=== PATIENT | female | born 1945 | race Caucasian/White ===

== ENCOUNTER → 2024-11-28 | Outpatient (BNVA) | payer MEDICARE, BC, SELFPAY | END | disposition home or self-care (01) | PROVIDERS: PCP Internal Medicine; Referring Provider Internal Medicine; Visit Provider Urology | DX: N39.46 Mixed incontinence (principal); I12.9 Hypertensive chronic kidney disease with stage 1 through stage 4 chronic kidney disease, or unspecified chronic kidney disease; N18.30 Chronic kidney disease, stage 3 unspecified; E66.01 Morbid (severe) obesity due to excess calories; Z68.41 Body mass index [BMI] 40.0-44.9, adult; Z87.440 Personal history of urinary (tract) infections; Z85.3 Personal history of malignant neoplasm of breast; E78.00 Pure hypercholesterolemia, unspecified; Z87.891 Personal history of nicotine dependence | CPT/HCPCS: 51701; 81003; 99212; G0463 ==

== ENCOUNTER 2024-12-01 18:06 | Emergency (ER) | payer MEDICARE, BC, SELFPAY ==
[2024-12-01 18:46] VITALS: BP 156/84; PULSE 80; RESP 22; TEMP 37.1; O2SAT 94; BMI 41.5
--- NOTE | 2024-12-01 18:50 | EKG_ITS ---
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
--- NOTE | 2024-12-01 18:56 | XR_ITS ---
Examination: PA chest single view Technique: Upright PA chest single view Indications: Difficulty breathing today. Findings: Mild CHF Mild prominence left ventricle Prominent vascular congestion with septal perihilar basilar edema Moderate osteopenia Impression: Mild CHF
--- NOTE | 2024-12-01 18:56 | EDRME_ITS ---
Rapid Medical Screening Exam [facility] Arrival date/time: 12/01/24 18:06 79F with history of HTN and depression presents to ED with 2 days of cough and SOB. Chief Complaint: Shortness of Breath/Dyspnea Vital signs: Vital Signs Temperature 98.7 F 12/01/24 18:46 Pulse Rate 80 12/01/24 18:46 Respiratory Rate 22 H 12/01/24 18:46 Blood Pressure 156/84 H 12/01/24 18:46 Pulse Oximetry (%) 94 L 12/01/24 18:46 Oxygen Delivery Method Room Air 12/01/24 18:46
[2024-12-01 19:31] LABS: Basophils % (Auto) 0 % (0-2.5); Eosinophils % (Auto) 1 % (0-10); Hematocrit 35.3 % (36.0-46.0); Hemoglobin 11.9 g/dL (12.0-16.0); Immature Granulocytes % (Auto) 0 % (0-0); Immature Granulocytes Auto 0.03 Thou/mm3 (0.00-0.00); Lymphocytes # (Auto) 0.6 Thou/mm3 (1.0-4.8); Lymphocytes % (Auto) 7 % (10-50); Mean Corpuscular HGB Conc 33.7 g/dl (31.0-37.0); Mean Corpuscular Hemoglobin 29.8 pg (25.0-35.0); Mean Corpuscular Volume 89 fL (80-100); Monocytes # (Auto) 0.6 Thou/mm3 (0.0-0.8); Monocytes % (Auto) 7 % (0-12); Neutrophils # (Auto) 7.4 Thou/mm3 (1.8-7.7); Neutrophils % (Auto) 86 % (37-80); Nucleated Red Blood Cell % 0 /100 WBC (0); Platelet Count 150 Thou/mm3 (140-440); RDW Standard Deviation 43.2 fL (36.4-46.3); Red Blood Count 3.99 Miln/mm3 (4.00-5.20); White Blood Count 8.6 Thou/mm3 (3.6-11.0)
[2024-12-01 19:44] LABS: B-Type Natriuretic Peptide 205 pg/mL (0-100)
[2024-12-01 19:46] LABS: Alanine Aminotransferase 42 U/L (10-49); Albumin, Serum 4.2 gm/dL (3.4-4.8); Albumin/Globulin Ratio 1.9 (1.2-2.2); Alkaline Phosphatase 116 U/L (46-116); Anion Gap 8 (7-16); Aspartate Amino Transferase 53 U/L (0-34); BUN/Creatinine Ratio 15 Ratio (12-20); Bilirubin,Total 0.9 mg/dL (0.3-1.2); Blood Urea Nitrogen 15 mg/dL (9-23); Calcium 9.4 mg/dL (8.3-10.6); Calcium (Corrected) 9.4 mg/dL (8.5-10.1); Carbon Dioxide 25.1 mMol/L (20.0-31.0); Chloride 109 mMol/L (98-107); Estimated Creatinine Clearance 57.3 mL/min (>60); Globulin 2.2 gm/dL (2.3-3.5); Glucose 116 mg/dL (74-106); Osmolality,Calculated 284 (275-295); Potassium 3.5 mMol/L (3.4-5.1); Sodium 142 mMol/L (136-145); Total Protein 6.4 gm/dL (5.7-8.2); Troponin I < 0.020 ng/mL (0.0-0.045); eGFR 57 See Note
[2024-12-01 20:00] VITALS: BP 158/77; PULSE 81; RESP 17; O2SAT 93
--- NOTE | 2024-12-01 21:22 | PD.EDSOB ---
ED SOB =RME/HPI General Chief Complaint: Shortness of Breath/Dyspnea Stated Complaint: SOB X 2 days, fever Time Seen by Provider: 12/01/24 20:37 Source: patient Arrival date/time: 12/01/24 18:06 Mode of arrival: ambulatory Limitations: no limitations RME / HPI RME / HPI Narrative: Dr. Mulligan?s Main ED Evaluation: 79-year-old female with a history of COPD presents to the emergency department with shortness of breath for the past three days. Earlier today, she was evaluated by her primary care physician, Dr. Kevin, who prescribed a 6- to 7-day burst of steroids for symptom management. Despite this, the patient now reports increased difficulty breathing, particularly when lying down. She denies chest pain, lower extremity swelling, fever, chills, or recent respiratory infections. She states that she has been attempting to compensate by taking deep breaths but continues to feel uncomfortable. Related Data Home Medications ?Medication ?Instructions ?Recorded ?Confirmed sertraline 100 mg tablet (Zoloft) 150 mg PO HS #0 tabs 05/22/16 11/28/24 simvastatin 20 mg tablet (Zocor) 20 mg PO HS #0 tabs 05/22/16 11/28/24 gabapentin 300 mg capsule 300 mg PO BID 12/10/22 11/28/24 losartan 100 1 tab PO QDAY 12/10/22 11/28/24 mg-hydrochlorothiazide 12.5 mg tablet albuterol sulfate 90 mcg/actuation 1 inh inhalation QID PRN 05/03/23 11/28/24 aerosol inhaler Bronchospasm nitrofurantoin 100 mg PO QDAY 11/28/24 11/28/24 monohydrate/macrocrystals 100 mg capsule (Macrobid) Previous Rx's ?Medication ?Instructions ?Recorded omeprazole 40 mg capsule,delayed 40 mg PO QDAY #30 caps 04/28/24 release Allergies Allergy/AdvReac Type Severity Reaction Status Date / Time No Known Allergies Allergy Verified 12/01/24 18:10 Review of Systems Review of Systems Systems Reviewed: All systems reviewed, normal except as documented Past Medical History Past Medical History NEUROLOGIC: Negative Neurological Disorders, Seizures or Peripheral Neuropathy CARDIAC: Positive Cardiac Disorders, Hypercholesterolemia and Hypertension; Negative Congestive Heart Failure RESPIRATORY: Positive Bronchitis and Sleep Apnea (does not want one); Negative Chronic Obstructive Pulmonary Disease (COPD) or Asthma GASTROINTESTINAL: Positive Gastrointestinal Disorders and Obesity; Negative Hepatitis GENITOURINARY: Negative Genitourinary Disorders or Renal Disease REPRODUCTIVE: Positive Breast Cancer (LEFT 2004) and Previous Pregnancies MUSCULOSKELETAL: Positive Musculoskeletal Disorders and Arthritis ENT: Positive Cataracts (trini) ENDOCRINE: Negative Endocrine Disorders, Diabetes Mellitus Type 1 or Diabetes Mellitus Type 2 HEMATOLOGIC: Negative Blood Disorders or Anemia PSYCHO/SOCIAL: Positive Depression and Anxiety OTHER HISTORY: Positive Hospitalization (surgery), Radiation Therapy (Left breast cancer 2004), Chicken Pox, Cancer (just diagnosed with bladder cancer) and Breast Cancer (LEFT 2004); Negative Autoimmune Disease, Shingles, Blood Transfusions, Anesthesia Reactions, Organ Transplant or MRSA Family History FAMILY HISTORY: Positive Family Cardiac Disorders (MOTHER-HEART PROBLEMS, FATHER-LA, SISTER-CABD, SISTER-LA), Family Cancer and Family Surgery; Negative Family Psychiatric Problems, Family Respiratory Disorders, Family Gastrointestinal Problems or Family Anesthesia Reaction Surgical History SURGICAL: Positive Ear Surgery, Joint Replacement, Lumpectomy (LEFT BREAST), Hysterectomy and Tubal Ligation; Negative Abdominal Surgery or Organ Transplant Social History SMOKING STATUS: Former smoker ED Exam General Limitations: Present no limitations General appearance: Present alert and in no apparent distress Head Head exam: Present atraumatic Eye Eye exam: Present normal appearance, PERRL and EOMI ENT ENT exam: Present normal exam, normal oropharynx and mucous membranes moist Neck Neck exam: Present normal inspection, full ROM and trachea midline Chest Chest inspection: Present normal inspection and symmetric chest wall rise Respiratory Respiratory exam: Present normal lung sounds bilaterally Cardiovascular Cardiovascular exam: Present regular rate, normal rhythm and normal heart sounds Abdominal Exam Abdominal exam: Present soft and normal bowel sounds Extremities Exam Extremities exam: Present normal inspection and full ROM Back Exam Back exam: Present normal inspection and full ROM Neurological Exam Neurological exam: Present alert, oriented X3 and CN II-XII intact Psychiatric Psychiatric exam: Present normal affect and normal mood Skin Skin exam: Present warm, dry, intact and normal color Course Course Course Narrative: CXR is ordered for determining etiology of shortness of breath. Quality Measures none Orders Category Date Time Status Bedside COVID-19 Antigen Test NOW Care 12/01/24 18:50 Completed Bedside Influenza A&B Antigen Test NOW Care 12/01/24 18:50 Completed EKG (ED ONLY) *Do not use* NOW Care 12/01/24 18:50 Completed EKG (ED Only) Stat Exams 12/01/24 18:50 Draft XR chest 1V portable Stat Exams 12/01/24 18:56 Completed B-Type Natriuretic Peptide Stat Lab 12/01/24 19:09 Completed CBC Stat Lab 12/01/24 19:09 Completed Comprehensive Metabolic Panel Stat Lab 12/01/24 19:09 Completed Troponin I Stat Lab 12/01/24 19:09 Completed Albuterol/Ipratr Rt Socorro [Duoneb Rt Socorro] Med 12/01/24 18:56 Discontinued 3 ml INH X1 ONE Reevaluation(s) Reevaluation #1: Patient states she feels significantly better compared to when she initially came in. Patient has an inhaler at home and is currently on steroids. Patient is stable to be discharged home. Time: 22:47 Vital Signs Vital signs: Vital Signs Temperature 98.7 F 12/01/24 18:46 Pulse Rate 80 12/01/24 18:46 Respiratory Rate 22 H 12/01/24 18:46 Blood Pressure 156/84 H 12/01/24 18:46 Pulse Oximetry (%) 94 L 12/01/24 18:46 Oxygen Delivery Method Room Air 12/01/24 18:46 Shortness of Breath / Dyspnea MDM Narrative MDM Narrative:: Scribe Attestation: Juju Land am scribing for and in the presence of Dr. Mulligan. Provider Notation: Although this document has been carefully reviewed, there may still be some phonetic and other typographical errors. These errors are purely grammatical due to imperfections in the software program and should not be construed in any way to compromise the substance of the patient's medical care during this visit. Patient data External records reviewed:: [facility] previous records Clinical information provided by:: patient Social determinants that could affect healthcare access:: none Patient has the following chronic illnesses:: see PMH How is presenting disease/condition affected by chronic disease/condition?: uneffected by Evaluation data The following diagnostics were reviewed and interpreted by me:: lab results, radiology exam(s) and EKG tracing(s) Lab and/or radiology exams considered but not ordered:: na Interpretation Summary: Examination: PA chest single view Technique: Upright PA chest single view Indications: Difficulty breathing today. Findings: Mild CHF Mild prominence left ventricle Prominent vascular congestion with septal perihilar basilar edema Moderate osteopenia Impression: Mild CHF Dictated By: Mo Walters MD Medications / Prescriptions Medications or Prescriptions considered but not ordered:: na Medication administrations:: Medication Administration History Discontinued Medications Albuterol/Ipratropium (Albuterol/Ipratropium (Duoneb) Rt [place] 3 Ml Nebu) 3 ml INH X1 ONE Stop: 12/01/24 18:57 Last Admin: 12/01/24 22:27 Dose: 3 ml Documented By: GIOVANNI as above Consultations Consultation(s) initiated? (list below): No Diagnosis Shortness of Breath Differential Diagnosis: congestive heart failure, community acquired pneumonia and pulmonary embolism Most likely diagnosis given after review of the tests above:: see clinical impression below Admission Indicated Admission indicated?: not indicated Admission Request Was there a request for admission?: No Disposition Plan Disposition Plan: Discharge Discharge Attestation Discharge Attestation: The patient and all family members were given an opportunity to ask questions and understood the discharge instructions. Discharge instructions specifically effects, indications for sooner follow up or return to the emergency department, and the expected course of current diagnosis. Patient condition: Stable Discharge Plan Plan Patient Disposition: HOME (Self Care) Patient condition on transfer: Stable Prescriptions/Referrals Prescriptions/Med Rec: No Action gabapentin 300 mg capsule 300 mg PO BID losartan-hydrochlorothiazide 100-12.5 mg tablet 1 tab PO QDAY nitrofurantoin monohyd/m-cryst [Macrobid] 100 mg capsule 100 mg PO QDAY Rx Instructions: must administer with a meal/food sertraline [Zoloft] 100 MG tablet 150 mg PO HS Qty: 0 simvastatin [Zocor] 20 MG tablet 20 mg PO HS Qty: 0 albuterol sulfate 90 mcg/actuation Hfa Aerosol Inhaler 1 inh INHALATION QID PRN (Reason: Bronchospasm) omeprazole 40 mg Capsule,Delayed Release(Dr/Ec) 40 mg PO QDAY Qty: 30 0RF Referrals: Thomas Kevin MD [Primary Care Provider] - In 1 week Problem List Clinical Impression: URI (upper respiratory infection) Patient/Caregiver Discharge Instructions Education Materials: ED Shortness of Breath (Dyspnea) Additional Instructions: Please continue your medications as per your primary care physician. Return to the emergency department if you are short of breath despite using your inhaler, unable to lie flat, or any other concerns. Print Language: Indonesian Stand Alone Forms: Radha Award Info., Patient Portal Info Letter
[2024-12-01] MEDS: ALBUTEROL/IPRATROPIUM (Duoneb) RT SOL 3 ML NEBU INH (22:27)
[2024-12-01 22:29] VITALS: PULSE 75; RESP 19; O2SAT 100
[2024-12-01 22:36] VITALS: BP 155/79; PULSE 74; RESP 18; TEMP 36.4; O2SAT 98
--- NOTE | 2024-12-01 23:02 | PC.NURSE ---
pt is post neb breathing tx. pt states she is breathing much easier now. Breath sounds are clear bilateraly.
[2024-12-01 23:10] VITALS: BP 155/84; PULSE 82; RESP 18; TEMP 36.7; O2SAT 97
== END 2024-12-01 23:08 | disposition home or self-care (01) ==
PROVIDERS: Physician Assistant; Emergency Provider Emergency Medicine; PCP Internal Medicine
DX: I11.0 Hypertensive heart disease with heart failure (principal); I50.9 Heart failure, unspecified; J44.9 Chronic obstructive pulmonary disease, unspecified; Z87.891 Personal history of nicotine dependence
CPT/HCPCS: 36415; 71045; 80053; 83880; 84484; 85025; 87400; 87811; 93005; 94640; 99283; A9270

== ENCOUNTER → 2025-04-12 | Outpatient (CLI) | payer MEDICARE, BC, SELFPAY ==
[2025-04-12 10:36] LABS: Basophils # (Auto) 0.0 Thou/mm3 (0.0-0.2); Basophils % (Auto) 1 % (0-2.5); Eosinophils # (Auto) 0.1 Thou/mm3 (0.0-0.5); Eosinophils % (Auto) 1 % (0-10); Hematocrit 39.7 % (36.0-46.0); Hemoglobin 13.5 g/dL (12.0-16.0); Immature Granulocytes Auto 0.02 Thou/mm3 (0.00-0.00); Lymphocytes # (Auto) 0.8 Thou/mm3 (1.0-4.8); Lymphocytes % (Auto) 14 % (10-50); Mean Corpuscular HGB Conc 34.0 g/dl (31.0-37.0); Mean Corpuscular Hemoglobin 29.7 pg (25.0-35.0); Mean Corpuscular Volume 87 fL (80-100); Monocytes # (Auto) 0.4 Thou/mm3 (0.0-0.8); Monocytes % (Auto) 8 % (0-12); Neutrophils # (Auto) 4.2 Thou/mm3 (1.8-7.7); Neutrophils % (Auto) 76 % (37-80); Nucleated Red Blood Cell # 0.00 Thou/mm3 (0.00-0.00); Nucleated Red Blood Cell % 0 /100 WBC (0); Platelet Count 132 Thou/mm3 (140-440); RDW Standard Deviation 43.6 fL (36.4-46.3); Red Blood Count 4.55 Miln/mm3 (4.00-5.20); White Blood Count 5.6 Thou/mm3 (3.6-11.0)
[2025-04-12 10:45] LABS: Vitamin D 25 Hydroxy Total 83.4 ng/mL (7.3-40.2)
[2025-04-12 10:47] LABS: Alanine Aminotransferase 14 U/L (10-49); Albumin, Serum 4.2 gm/dL (3.4-4.8); Albumin/Globulin Ratio 2.1 (1.2-2.2); Alkaline Phosphatase 125 U/L (46-116); Anion Gap 10 (7-16); Aspartate Amino Transferase 30 U/L (0-34); BUN/Creatinine Ratio 18 Ratio (12-20); Bilirubin,Total 0.7 mg/dL (0.3-1.2); Blood Urea Nitrogen 24 mg/dL (9-23); Calcium 8.8 mg/dL (8.3-10.6); Calcium (Corrected) 8.8 mg/dL (8.5-10.1); Carbon Dioxide 28.1 mMol/L (20.0-31.0); Cardiac Risk Estimate 2.4 RATIO (3.7-5.6); Chloride 107 mMol/L (98-107); Cholesterol 134 mg/dL (132-200); Creatinine (Component) 1.3 mg/dL (0.6-1.3); Free T4 (Free Thyroxine) 0.89 ng/dL (0.89-1.76); Globulin 2.0 gm/dL (2.3-3.5); Glucose 104 mg/dL (74-106); HDL Cholesterol 56 mg/dL (40-60); LDL Cholesterol,Calculated 63 mg/dL (0-130); Osmolality,Calculated 292 (275-295); Potassium 4.3 mMol/L (3.4-5.1); Sodium 145 mMol/L (136-145); Thyroid Stimulating Hormone 1.72 uIU/mL (0.55-4.78); Total Protein 6.2 gm/dL (5.7-8.2); Triglycerides 74 mg/dL (30-150); eGFR 42 See Note
[2025-04-12 11:13] LABS: Glucose Estimated Average 100 mg/dL (80-131); Hemoglobin A1C 5.1 % Hgb (4.8-6.0)
== END | disposition home or self-care (01) ==
LOC: COPL 09:28
PROVIDERS: PCP Internal Medicine; Referring Provider Internal Medicine; Visit Provider Internal Medicine
DX: I11.0 Hypertensive heart disease with heart failure (principal); E11.9 Type 2 diabetes mellitus without complications; E55.9 Vitamin D deficiency, unspecified; E78.2 Mixed hyperlipidemia; E03.9 Hypothyroidism, unspecified
CPT/HCPCS: 36415; 80053; 80061; 82306; 83036; 84439; 84443; 85025

== ENCOUNTER → 2025-05-10 | Outpatient (CLI) | payer MEDICARE, BC, SELFPAY ==
--- NOTE | 2025-05-10 11:30 | XR_ITS ---
Examination: Screening digital mammography, bilateral Computer aided detection 3-D breast Tomosynthesis, bilateral Date and time of exam: May 10, 2025 1118 hours Compared to mammograms dating to January 02, 2022 Indication: Screening Technique: Nonmagnified MLO, CC views of the breasts to been obtained, reconstructed from 3-D Tomosynthesis images. R2 computer aided detection program utilized for evaluation of suspicious masses and/or abnormal calcifications. 3-D Tomosynthesis images obtained. Findings: Scattered areas of fibroglandular density. Decreased left breast volume, extensive scar formation again noted consistent with patient's history treated left breast cancer Benign calcifications Stable focal asymmetry on the right breast CC view nipple level No interval suspicious masses Impression: BI-RADS category II: Benign Findings. Recommend 1 year follow-up mammogram.
== END | disposition home or self-care (01) ==
LOC: CDIM 11:08
PROVIDERS: Referring Provider Internal Medicine; Visit Provider Internal Medicine
DX: Z12.31 Encounter for screening mammogram for malignant neoplasm of breast (principal); R92.323 Mammographic fibroglandular density, bilateral breasts; R92.1 Mammographic calcification found on diagnostic imaging of breast
CPT/HCPCS: 77063; 77067